=== PATIENT | female | born 1955 | race Caucasian/White ===

== ENCOUNTER 2023-11-28 11:23 | Outpatient (OUT) | payer MEDICARE, OTHER, SELFPAY ==
--- NOTE | 2023-11-28 11:55 | XR_ITS ---
[facility] [place] [id number] Patient Name: BARON WESTON MRN: [id number] date: 1955 Sex: F Assigned Patient Location: [facility] Current Patient Location: Accession/Order Number: [id number] Exam Date: 11/28/2023 11:50 Report Date: 11/29/2023 07:42 At the request of: VENUS DEJESUS Procedure: XR lumbar spine 2-3V EXAMINATION: XR lumbar spine 2-3V HISTORY: Degeneration Of Intervertebral Disc Lumbar COMPARISON: No relevant comparison available. FINDINGS: BONES: Rotatory levocurvature of the lumbar spine. Moderate spondylosis and facet osteoarthropathy . Mild anterior wedging of the L3 and L4 vertebral bodies, age indeterminate compression injuries DISC SPACES: Multilevel disc space narrowing PARASPINOUS: Negative. No paraspinous abnormality is seen. OTHER: Vascular Calcifications XR/XR lumbar spine 2-3V IMPRESSION: Moderate diffuse degenerative changes Electronically authenticated by: JEREL CARROLL Date: 11/29/2023 07:42
== END 2023-11-28 11:24 | disposition home or self-care (01) ==
LOC: RAD 11:33
PROVIDERS: Family Provider Family Medicine; PCP Family Medicine; Visit Provider Family Medicine
DX: M51.369 Other intervertebral disc degeneration, lumbar region without mention of lumbar back pain or lower extremity pain (principal)
CPT/HCPCS: 72100